=== PATIENT | male | born 1950 | race Caucasian/White ===

== ENCOUNTER → 2017-02-09 | Outpatient (CLI) | payer MEDICARE ==
[~2017-02-09] MED LIST: CRESTOR40 MG PO; GLUCOPHAGE500 MG PO; TOPROL XL 50 MG50 MG PO; ZESTORETIC 20/11 TAB PO; ZOLOFT PO
--- NOTE | ~2017-02-09 | US10 ---
[id number] [facility] [address] [place], [place] [address] [id number] O MR#: [id number] Acc #: [id number] NAME: DEVON ROBBINS : 1950 SEX: M STUDY DATE/TIME: 02/09/2017 9:13 UNIT: [facility] ROOM: STUDY DESCRIPTION: US Aorta Complete Attending Physician: John Sanders M.D. Referring Physician: John Sanders M.D. Ordering Physician: John Sanders M.D. Primary Care Physician: Eb Iqbal Jr., M.D. MEDICAL IMAGING REPORT This report is preliminary unless electronic signature is present EXAM Abdominal aorta duplex HISTORY Abdominal aortic aneurysm. FINDINGS Duplex imaging of the abdominal aorta was performed. The proximal aorta is patent and measures 2.5 cm in S1 diameter. In the mid portion the abdominal aorta is aneurysmal with a maximal diameter of 4.2 x 4.0 cm. Distal aorta measures 2.9 cm in maximal diameter. Right and left EA arteries are nonaneurysmal. IMPRESSION Abdominal aortic aneurysm with a maximal diameter of 4.2 x 4 cm soumya in the mid portion. Dictated by... John Sanders M.D. THIS IS AN ELECTRONICALLY VERIFIED REPORT John Sanders M.D. at 02/10/2017 4:04 PM Mirlande TD: 02/10/2017 08:41 JOB #: [id number] MEDICAL IMAGING REPORT Page 1 of 1 COPY
== END | disposition home or self-care (01) ==
LOC: CGUS 08:19
DX: I71.4 Abdominal aortic aneurysm, without rupture (principal)
CPT/HCPCS: 76770